=== PATIENT | female | born 1990 | race Caucasian/White ===

== ENCOUNTER 2018-04-22 06:08 | Inpatient (IN) | payer MEDICAID ==
[2018-04-22 07:19] LABS: ADD MAN DIFF? NO
[2018-04-22 07:20] LABS: BASOPHILS % 0.4 % (0.0-2.0); EOSINOPHILS # 0.1 10^3/ul (0.0-0.5); EOSINOPHILS % 0.9 % (0.0-7.0); HEMATOCRIT 32.7 % (37.0-47.0); HEMOGLOBIN 10.3 g/dl (12.0-16.0); LYMPHOCYTES # 2.1 10^3/ul (0.8-2.9); LYMPHOCYTES % 20.5 % (15.0-51.0); MEAN CORPUSCULAR HEMOGLOBIN 24.1 pg (29.0-33.0); MEAN CORPUSCULAR HGB CONC 31.5 g/dl (32.0-37.0); MEAN CORPUSCULAR VOLUME 76.6 fl (82.0-101.0); MEAN PLATELET VOLUME 12.2 fl (7.4-10.4); MONOCYTE # 0.7 10^3/ul (0.3-0.9); MONOCYTES % 6.7 % (0.0-11.0); NEUTROPHIL # 7.4 10^3/ul (1.6-7.5); NEUTROPHILS % 70.9 % (39.0-77.0); PLATELET COUNT 253 10^3/UL (140-415); RED BLOOD COUNT 4.27 10^6/ul (4.20-5.40); RED CELL DISTRIBUTION WIDTH 14.8 % (11.5-14.5)
[2018-04-22 07:20] LABS: WHITE BLOOD COUNT 10.5 10^3/ul (4.8-10.8)
[2018-04-22] MEDS ORDERED: OXYTOCIN 30 UNITS/LR 500 ML IV ×3 (07:30→16:30)
[2018-04-22] MEDS ORDERED: CEFAZOLIN 2 GM/50 ML (PMX) 50 ML IVPB (07:30)
[2018-04-22] MEDS ORDERED: METHYLERGONOVINE 0.2 MG INJ IM ×2 (07:30→16:30)
[2018-04-22] MEDS ORDERED: CARBOPROST 250 MCG INJ IM ×2 (07:30→16:30)
[2018-04-22] MEDS ORDERED: MISOPROSTOL 200 MCG TAB PR ×2 (07:30→16:30)
[2018-04-22 07:39] LABS: INR 0.92; PROTIME 12.4 Sec (11.9-14.9)
[2018-04-22 07:40] LABS: PARTIAL THROMBOPLASTIN TIME 26.6 Sec (23.0-35.0)
[2018-04-22 08:18] LABS: HEPATITIS B SURFACE ANTIGEN NEGATIVE (NEGATIVE)
[2018-04-22] MEDS: LACTATED RINGER'S 1,000 ML IV ×3 (08:27→23:08)
[2018-04-22] MEDS ORDERED: EPHEDrine SULFATE 50 MG/5 ML SYG (14:09)
[2018-04-22] MEDS ORDERED: morphine SULFATE/PF (10 MG/10 ML) INJ (14:10)
[2018-04-22] MEDS ORDERED: OXYTOCIN 10 UNIT INJ ×2 (14:10→14:46)
[2018-04-22] MEDS ORDERED: ONDANSETRON 4 MG INJ (14:10)
[2018-04-22] MEDS ORDERED: METOCLOPRAMIDE 10 MG INJ (14:10)
[2018-04-22] MEDS: OXYTOCIN 30 UNITS/LR 500 ML IV ×2 (16:07→16:46)
[2018-04-22] MEDS: DEXTROSE 5%-LR 1,000 ML IV (16:07)
[2018-04-22] MEDS ORDERED: MAGNESIUM HYDROXIDE 30ML CUP PO (16:30)
[2018-04-22] MEDS ORDERED: METHYLERGONOVINE 0.2 MG TAB PO (16:30)
[2018-04-22] MEDS ORDERED: NALOXONE (0.4 MG/ML) INJ IV (17:00)
[2018-04-22] MEDS ORDERED: morphine 2 MG INJ IV ×2 (17:00)
[2018-04-22] MEDS: morphine SULFATE/PF (10 MG/10 ML) INJ SPINAL (17:00)
[2018-04-22] MEDS ORDERED: EPHEDrine SULFATE 50 MG/5 ML SYG IV (17:00)
[2018-04-22] MEDS ORDERED: DIPHENHYDRAMINE 50 MG INJ IV (17:00)
[2018-04-22] MEDS: ONDANSETRON 4 MG INJ IV (18:53)
[2018-04-22] MEDS: LANOLIN 7 GM TUBE TOP (18:53)
[2018-04-22] MEDS: SENNA/DOCUSATE NA (8.6MG/50MG) TAB PO (21:00)
[2018-04-22] MEDS: IBUPROFEN 800 MG TAB PO (22:00)
[2018-04-23] MEDS: DEXTROSE 5%-LR 1,000 ML IV ×2 (01:37→08:07)
[2018-04-23] MEDS: IBUPROFEN 800 MG TAB PO ×2 (06:00→14:00)
[2018-04-23] MEDS: LACTATED RINGER'S 1,000 ML IV ×2 (06:48→09:20)
[2018-04-23 08:07] LABS: ADD MAN DIFF? NO
[2018-04-23 08:15] LABS: WHITE BLOOD COUNT 11.2 10^3/ul (4.8-10.8)
[2018-04-23 08:15] LABS: BASOPHILS % 0.3 % (0.0-2.0); EOSINOPHILS % 0.2 % (0.0-7.0); HEMATOCRIT 26.6 % (37.0-47.0); HEMOGLOBIN 8.1 g/dl (12.0-16.0); LYMPHOCYTES # 1.6 10^3/ul (0.8-2.9); LYMPHOCYTES % 14.6 % (15.0-51.0); MEAN CORPUSCULAR HEMOGLOBIN 23.8 pg (29.0-33.0); MEAN CORPUSCULAR HGB CONC 30.5 g/dl (32.0-37.0); MEAN PLATELET VOLUME 11.4 fl (7.4-10.4); MONOCYTE # 0.8 10^3/ul (0.3-0.9); NEUTROPHIL # 8.7 10^3/ul (1.6-7.5); NEUTROPHILS % 77.4 % (39.0-77.0); PLATELET COUNT 219 10^3/UL (140-415); RED BLOOD COUNT 3.41 10^6/ul (4.20-5.40); RED CELL DISTRIBUTION WIDTH 14.8 % (11.5-14.5)
[2018-04-23] MEDS: SENNA/DOCUSATE NA (8.6MG/50MG) TAB PO ×2 (09:18→20:38)
[2018-04-23] MEDS: INFLUENZA VIRUS VACCINE 0.5 ML (DISPENSING) IM* (09:18)
[2018-04-23] MEDS ORDERED: HYDROCODONE/APAP (5/325) TAB NGT (11:00)
[2018-04-23] MEDS: KETOROLAC 30 MG INJ IV (13:29)
[2018-04-23] MEDS: HYDROCODONE/APAP (5/325) TAB GTB ×3 (14:18→21:24)
[2018-04-24] MEDS: IBUPROFEN 800 MG TAB PO ×4 (00:11→21:50)
[2018-04-24] MEDS: SENNA/DOCUSATE NA (8.6MG/50MG) TAB PO ×2 (09:00→21:49)
[2018-04-24] MEDS: HYDROCODONE/APAP (5/325) TAB GTB ×2 (14:15→21:49)
[2018-04-24] MEDS: DIPHTH/TET/ACEL PERTUSS (ADULT) 0.5 ML VIAL IM* (14:19)
[2018-04-25] MEDS: HYDROCODONE/APAP (5/325) TAB GTB ×2 (05:43→14:00)
[2018-04-25] MEDS: IBUPROFEN 800 MG TAB PO ×2 (05:43→14:00)
[2018-04-25] MEDS: SENNA/DOCUSATE NA (8.6MG/50MG) TAB PO (08:32)
[2018-04-25] MEDS: MEASLES,MUMPS,RUBELLA VACCINE INJ SC* (09:00)
[2018-04-25] MEDS ORDERED: DIPHTH/TET/ACEL PERTUSS (ADULT) 0.5 ML VIAL IM* (09:00)
== END 2018-04-25 15:51 | disposition home or self-care (01) | DRG 785 ==
LOC: L-D 06:08 → PP1 18:25
PROVIDERS: Obstetrics & Gynecology
PROC: 10D00Z1 Extraction of Products of Conception, Low, Open Approach (ICD-10-PCS; principal; 2018-04-22 07:30)
PROC: 0UB70ZZ Excision of Bilateral Fallopian Tubes, Open Approach (ICD-10-PCS; 2018-04-22 07:30)
DX: O34.219 Maternal care for unspecified type scar from previous cesarean delivery (principal); O90.81 Anemia of the puerperium; D64.9 Anemia, unspecified; Z37.0 Single live birth; Z3A.39 39 weeks gestation of pregnancy; Z30.2 Encounter for sterilization; Z23 Encounter for immunization
CPT/HCPCS: 85025; 85610; 85730; 86850; 86900; 86901; 87340; 88302; 90686; 90715